=== PATIENT | male | born 1975 | race Hispanic/Latino ===

== ENCOUNTER → 2020-02-24 | Outpatient (CLI) | payer BC ==
--- NOTE | 2020-02-24 11:47 | Diagnostic Imaging Report ---
EXAM: Complete Abdominal Ultrasound INDICATION: Gastritis. Abdominal pain ^[id number] ^[id number] ^GASTRITIS,UNSPC'D,W/O BLEEDING COMPARISON: None. TECHNIQUE: Transverse and longitudinal images of the upper abdomen were obtained. FINDINGS: Liver: Size: 21.3 cm in the right midclavicular line, enlarged Appearance: Increased echogenicity, smooth contour Mass: No focal masses Spleen: Size: 11.1 cm in length, normal Echogenicity: Normal Mass: No focal masses Gallbladder: Stones/Sludge: None Wall: 0.2 cm Appearance: No wall thickening, pericholecystic fluid or hydrops. Sonographic Gabriel's Sign: Negative Bile Ducts: Intrahepatic Ducts: No dilatation Extrahepatic Ducts: Common bile duct measures 0.4 cm, no dilatation Pancreas: Visualized portions of the pancreatic head, neck and proximal body are normal. Kidneys: Length: Right 12.5 cm Left 11.1 cm Echogenicity: Normal Collecting System: No hydronephrosis Stone: None Cyst/Mass: 5.2 x 4.3 x 4.1 cm simple appearing cyst in the upper right kidney Vessels: Aorta: Not well seen Inferior Vena Cava: Not well seen Main Portal Vein: 0.7 cm, normal size with hepatopetal flow. Free Fluid: No ascites or pleural effusion IMPRESSION: 5.2 x 4.3 x 4.1 cm simple appearing cyst in the upper right kidney. Hepatomegaly with increased hepatic echogenicity could be due to fatty infiltration. Slightly limited study due to patient's body habitus. Signed by: Dr. Gilbert Fonseca M.D. on 02/24/2020 11:44 AM
== END ==
LOC: US 10:41
PROVIDERS: ATTEND Family Medicine
DX: K29.70 Gastritis, unspecified, without bleeding (principal)
CPT/HCPCS: 76700

== ENCOUNTER 2020-05-19 16:04 | Emergency (ER) | payer BC ==
[~2020-05-19] VITALS: Ht 182.9 cm; Wt 139.0 kg
[2020-05-19] MEDS ORDERED: SODIUM CHLORIDE 0.9% 1000ML 1,000 ML IV STA (16:36)
[2020-05-19] MEDS ORDERED: FAMOTIDINE 20 MG/2 ML VIAL IV ONE (16:45)
[2020-05-19] MEDS ORDERED: ONDANSETRON HCL INJ 2MG/ML 2ML 2 MG/ML VIAL ONE ×2 (16:45→16:47)
[2020-05-19] MEDS ORDERED: ONDANSETRON HCL INJ 2MG/ML 2ML 2 MG/ML VIAL IV ONE (16:45)
[2020-05-19] MEDS ORDERED: ACETAMINOPHEN 325 MG TAB PO ONE (16:45)
[2020-05-19] MEDS ORDERED: DEXAMETHASONE SOD PHOS 10 MG/1 ML VIAL IV ONE (16:45)
[2020-05-19] MEDS ORDERED: ACETAMINOPHEN 325 MG TAB ONE (16:46)
[2020-05-19] MEDS ORDERED: SODIUM CHLORIDE 0.9% 1000ML 1,000 ML ONE (16:47)
[2020-05-19] MEDS ORDERED: DEXAMETHASONE SOD PHOS INJ 4 MG/ML VIAL ONE (16:47)
[2020-05-19] MEDS ORDERED: CEFTRIAXONE SOD 1 GM/NS 50 ML 50 ML IV ONE (16:50)
[2020-05-19] MEDS ORDERED: QUETIAPINE FUMA25 MG (19:04)
[2020-05-19] MEDS ORDERED: MELOXICAM7.5 MG PO (19:04)
[2020-05-19] MEDS ORDERED: METFORMIN HCL500 MG PO (19:04)
[2020-05-19] MEDS ORDERED: ATENOLOL50 MG (19:04)
[2020-05-19] MEDS ORDERED: OLMSRTN-AMLDPN1 EAC2 (19:04)
[2020-05-19] MEDS ORDERED: METHOCARBAMOL750 MG PO (19:04)
[2020-05-19 19:06] VITALS: BP 127/68
== END 2020-05-19 19:00 | disposition other institution (70) ==
LOC: FSED 16:30
DX: U07.1 COVID-19 (principal); R09.02 Hypoxemia; R06.03 Acute respiratory distress; R11.2 Nausea with vomiting, unspecified; I10 Essential (primary) hypertension
CPT/HCPCS: 71045; 80053; 85025; 96374; 96375; 99284; J0696; J1100; J2405; J7030

== ENCOUNTER → 2020-08-14 | Outpatient (CLI) | payer BC, OTHER ==
[~2020-08-14] MED LIST: ATENOLOL50 MG; COVID-19 VACC, MRNA(MODERNA)/PF 100 MCG/0.5 ML VIAL IM ONE; MELOXICAM7.5 MG PO; METFORMIN HCL500 MG PO; METHOCARBAMOL750 MG PO; OLMSRTN-AMLDPN1 EAC2; QUETIAPINE FUMA25 MG
== END | disposition home or self-care (01) ==
LOC: VACCPMC 18:22
DX: Z23 Encounter for immunization (principal); Z20.822 Contact with and (suspected) exposure to COVID-19
CPT/HCPCS: 91301

== ENCOUNTER → 2020-09-11 | Outpatient (CLI) | payer BC, OTHER | END | disposition home or self-care (01) | LOC: VACCPMC 08:00 | DX: Z23 Encounter for immunization (principal); Z20.822 Contact with and (suspected) exposure to COVID-19 | CPT/HCPCS: 91301 ==

== ENCOUNTER 2021-02-04 08:17 | Emergency (ER) | payer BC, OTHER ==
[~2021-02-04] VITALS: Ht 182.9 cm; Wt 136.1 kg
[~2021-02-04 08:17] MED LIST changes: -COVID-19 VACC, MRNA(MODERNA)/PF 100 MCG/0.5 ML VIAL IM ONE
[2021-02-04] MEDS ORDERED: SODIUM CHLORIDE 0.9% 1000ML 1,000 ML IV STA (08:49)
[2021-02-04] MEDS ORDERED: ONDANSETRON HCL INJ 2MG/ML 2ML 2 MG/ML VIAL ONE (08:51)
[2021-02-04] MEDS ORDERED: SODIUM CHLORIDE 0.9% 1000ML 1,000 ML ONE (08:51)
[2021-02-04] MEDS ORDERED: FAMOTIDINE 20 MG/2 ML VIAL IV ONE ×2 (08:58→09:00)
[2021-02-04] MEDS ORDERED: ONDANSETRON HCL INJ 2MG/ML 2ML 2 MG/ML VIAL IV ONE (09:00)
[2021-02-04] MEDS ORDERED: ZOFRAN4 MG PO (09:42)
[2021-02-04] MEDS ORDERED: OMEPRAZOLE20 M2 PO (09:42)
[2021-02-04 10:00] VITALS: BP 112/66
== END 2021-02-04 10:13 | disposition home or self-care (01) ==
LOC: FSED 08:46
DX: R10.13 Epigastric pain (principal); R11.0 Nausea; R42 Dizziness and giddiness; K21.00 Gastro-esophageal reflux disease with esophagitis, without bleeding; I10 Essential (primary) hypertension
CPT/HCPCS: 71046; 80048; 81003; 82553; 84484; 85025; 93005; 96374; 96376; 99283; J2405; J7030